=== PATIENT | female | born 1985 | race African-American/Black ===

== ENCOUNTER 2021-09-05 19:04 | Emergency (ER) | payer OTHER, MEDICAID ==
[~2021-09-05] VITALS: Ht 175.3 cm; Wt 73.0 kg
[2021-09-05 19:24] VITALS: BP 140/89
[2021-09-05] MEDS ORDERED: ALBU6.7H9 INH (22:28)
== END 2021-09-05 22:47 ==
LOC: ER 19:04
DX: I10 Essential (primary) hypertension (principal); Z53.21 Procedure and treatment not carried out due to patient leaving prior to being seen by health care provider